=== PATIENT | male | born 1975 | race Caucasian/White ===

== ENCOUNTER 2023-04-25 14:40 | Outpatient (CLI) | payer MEDICARE, SELFPAY | END 2023-04-25 14:41 | disposition home or self-care (01) | DX: L29.0 Pruritus ani (principal) | CPT/HCPCS: 87177; 87209 ==

== ENCOUNTER 2025-01-28 16:56 | Outpatient (CLI) | payer MEDICARE, SELFPAY ==
--- NOTE | ~2025-01-28 | XR_ITS ---
HISTORY: low back pain; no injury COMPARISON: None. TECHNIQUE: 2 view lumbar spine. FINDINGS: Lumbar vertebral bodies are normally aligned. There are 5 non-rib bearing lumbar vertebral bodies. Degenerative disease is noted, with osteophyte formation and disc space narrowing, most prominent at the level of L3/L4 and L5/S1. Remaining disc spaces and vertebral body heights are well maintained. There are no lytic or sclerotic lesions. Paraspinal soft tissues are unremarkable. IMPRESSION: Degenerative disease, without acute fracture. Reviewed, dictated and finalized at location A.
--- OUTSIDE RECORDS SUMMARY | 2025-01-28 17:12 | XMS_ITS | Encounter Summary ---
Author Organization [employer] Address [address] [place] [address] Care Team Providers Care Pilot Plant Operator Name Role Phone Not Found, Stl Primary Care Provider Unavailabl e Encounter Details Date Type Department Care Team (Late st Contact Info) Description 05/08/2006 Outpatient Historical [facility] Larry Victor MD [address] [place] [address] [place] [address] Er, Authorized P NO ADDRESS ON FILE Unspecified Chest Pain (Primary Dx) Social History Tobacco Use Types Packs/Day Years Used Date Smoking Tobacco: Never Assessed Sex and Gender Information Value Date Recorded Sex Assigned at Not on file Legal Sex Male 4:36 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 Gender Identity Not on file Sexual Orientation Not on file documented as of this encounter Plan of Treatment Not on file documented as of this encounter Procedures Procedure Name Priority Date/Time Associated Diagnosis Comments PT AND APTT Routine 05/08/2006 9:10 PM CDT CBC WITH DIFFERENTIAL Routine 05/08/2006 9:10 PM CDT CBC WITH DIFFERENTIAL Routine 05/08/2006 9:10 PM CDT COMPREHENSIVE METABOLIC PANEL Routine 05/08/2006 9:10 PM CDT documented in this encounter Results * CBC WITH DIFFERENTIAL (05/08/2006 9:10 PM CDT) NEUTROPHILS 60 45 - 70 % INTERFAC E SYSTEM LYMPHOCYTES 33 16 - 45 % INTERFAC E SYSTEM MONOCYTES 6 3 - 13 % INTERFACE SYSTEM EOSINOPHILS 2 0 - 7 % INTERFAC E SYSTEM BASOPHILS 0 0 - 2 % INTERFACE SYSTEM NEUTROPHIL ABSOLUTE 5.75 1.90 - 7.00 K/uL INTERFACE SYSTEM LYMPHOCYTE ABSOLUTE 3.13 0.70 - 4.50 K/uL INTERFACE SYSTEM MONOCYTE ABSOLUTE 0.53 0.10 - 1.30 K/uL INTERFACE SYSTEM EOSINOPHIL ABSOLUTE 0.17 0.00 - 0.70 K/uL INTERFACE SYSTEM BASOPHILS ABSOLUTE 0.02 0.00 - 0.20 K/uL INTERFACE SYSTEM 05/08/2006 9:10 PM CDT Larry Victor MD HEMATOLOGY ORDERABLES Final Resu lt Performing Organization Address City/[facility] Co de Phone Number INTERFACE SYSTEM Refer to clinic/hospital department * (ABNORMAL) CBC WITH DIFFERENTIAL (05/08/2006 9:10 PM CDT) WBC 9.6 4.0 - 9.8 K/uL INTERFACE SYSTEM RBC 5.13 4.50 - 5.40 M/uL INTERFACE SYSTEM HEMOGLOBIN 16.1 13.6 - 16.5 g/dL INTERFACE SYSTEM HEMATOCRIT 45.2 40.0 - 48.0 % INTERFACE SYSTEM MCV 88.1 82.0 - 99.0 fL INTERFACE SYSTEM MCH 31.4 27.2 - 32.6 pg INTERFACE SYSTEM MCHC 35.6(H) 31.5 - 35.5 % INTERFACE SYSTEM RDW 12.4 11.5 - 14.5 % INTERFACE SYSTEM RDW-STDEV 39.6 37.1 - 48.7 fL INTERFACE SYSTEM PLATELETS 221 140 - 350 K/uL INTERFACE SYSTEM MPV 9.7 9.3 - 12.4 fL INTERFACE SYSTEM 05/08/2006 9:10 PM CDT Larry Victor MD HEMATOLOGY ORDERABLES Final Resu lt Performing Organization Address City/[facility] Co de Phone Number INTERFACE SYSTEM Refer to clinic/hospital department * PT AND APTT (05/08/2006 9:10 PM CDT) PROTIME 13.4 12.7 - 15.1 Seconds INTERFACE SYSTEM INR 0.9 0.9 - 1.1 INTERFACE SYSTEM Comment: INR Therapeutic Range: Adult: 2.0 - 3.0 for pulmonary embolism or prophylaxis against venous thrombosis or systemic embolization. 2.0 - 3.0 for patients with tissue heart valves. 2.5 - 3.5 for patients with mechanical heart valves or post NV. Pediatric (12 years and under): 1.5 - 3.0 Although the target range in children is not well established , INR values of 1.5 - 3.0 are recommended for most patients. Higher values have been used in children with prosthetic cardiac valves and hereditary clotting disorders. (<3 days) therapeutic ranges have not been established. PTT 27.9 24.4 - 36.4 Seconds INTERFACE SYSTEM Comment: PTT Therapeutic Range: Heparin Level PTT (seconds) <0.10 units/mL <53 0.10 - 0.30 units/mL 53 - 67 0.30 - 0.70 units/mL* 67 - 95* 0.70 - 1.00 units/mL 95 - 116 *corresponds to therapeutic range for unfractionated heparin 05/08/2006 9:10 PM CDT us Larry Victor MD HEMATOLOGY ORDERABLES Final Resu lt INTERFACE SYSTEM Refer to clinic/hospital department * (ABNORMAL) COMPREHENSIVE METABOLIC PANEL (05/08/2006 9:10 PM CDT) GLUCOSE 88 65 - 99 mg/dL INTERFACE SYSTEM CREATININE 1.0 0.5 - 1.3 mg/dL INTERFACE SYSTEM CALCIUM 8.8 8.4 - 10.2 mg/dL INTERFACE SYSTEM ALKALINE PHOSPHATASE 75 40 - 129 U/L INTERFACE SYSTEM AST 34 12 - 38 U/L INTERFACE SYSTEM ALT 57(H) 0 - 41 U/L INTERFACE SYSTEM TOTAL PROTEIN 8.0 6.3 - 8.6 g/dL INTERFACE SYSTEM ALBUMIN 4.9(H) 3.4 - 4.8 g/dL INTERFACE SYSTEM BILIRUBIN TOTAL 0.9 0.2 - 1.0 mg/dL INTERFACE SYSTEM BUN 11 6 - 20 mg/dL INTERFACE SYSTEM SODIUM 143 135 - 145 mmol/L INTERFACE SYSTEM POTASSIUM 3.6 3.5 - 4.9 mmol/L INTERFACE SYSTEM CHLORIDE 104 96 - 108 mmol/L INTERFACE SYSTEM CO2 29 22 - 30 mmol/L INTERFACE SYSTEM 05/08/2006 9:10 PM CDT us Larry Victor MD CHEMISTRY ORDERABLES Final Resul t INTERFACE SYSTEM Refer to clinic/hospital department documented in this encounter Visit Diagnoses Diagnosis Chest pain, unspecified- Primary documented in this encounter Care Teams Pilot Plant Operator Relationship Specialty Start Date End Date Not Found, Stl NO ADDRESS ON FILE PCP - General 09/10/09 documented as of this encounter
--- OUTSIDE RECORDS SUMMARY | 2025-01-28 17:12 | XMS_ITS | Encounter Summary ---
Author Organization [employer] Address 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 Gender Identity Not on file Sexual Orientation Not on file documented as of this encounter Plan of Treatment Not on file documented as of this encounter Procedures Procedure Name Priority Date/Time Associated Diagnosis Comments XR TIBIA AND FIBULA 2 VW LEFT Routine 01/11/2008 11:15 PM CDT XR ELBOW 3+ VW RIGHT Routine 01/11/2008 11:15 PM CDT URINALYSIS W/REFLEX MICROSCOPIC Stat 01/11/2008 11:14 PM CDT documented in this encounter Results * XR ELBOW 3+ VW RIGHT (01/11/2008 11:15 PM CDT) Anatomical Region Laterality Modality Upper Extremity Other 01/11/2008 11:1 5 PM CDT Narrative 01/11/2008 11:36 PM CDT [facility] [address] [place], [place] [address] Admit Date: 01/11/2008 BALTAZAR HINOJOSA Sex: M Admit Prov: ER, AUTHORIZED P Date: 1975 Primary Care Prov: CMRN: [id number] [id number] [facility] Ordering Prov: N/A Accession Number: [id number] Interpretation Right elbow 3 views 01/11/2008. History: Injury. Pain. Findings: No acute fracture, subluxation, lytic or blastic lesion is visualized. The joint spaces are well-maintained. The soft tissues are unremarkable. Impression: No identifiable bone abnormalities. . Dictated by: TAYLOR FOWLER 01/11/2008 23:36 Electronically signed by: TAYLOR FOWLER 01/11/2008 23:36 Procedure Note Taylor Fowler - 01/11/[address] [address] Admit Date: 01/11/2008 BALTAZAR HINOJOSA Sex: M Admit Prov: ER, AUTHORIZED P Date: 1975 Primary Care Prov: CMRN: [id number] [facility] [id number] IM[facility] SERVICES Ordering Prov: N/A Interpretation Right elbow 3 views 01/11/2008. History: Injury. Pain. Findings: No acute fracture, subluxation, lytic or blastic lesionis visualized. The joint spaces are well-maintained. The soft tissuesare unremarkable. Impression: No identifiable bone abnormalities. . Dictated by: TAYLOR FOWLER 01/11/2008 23:36 Electronically signed by: TAYLOR FOWLER 01/11/2008 23:36 us Juan Carlos Reyes DO DIAGNOSTIC IMAGING ORDERABLE S Final Result * XR TIBIA AND FIBULA 2 VW LEFT (01/11/2008 11:15 PM CDT) Anatomical Region Laterality Modality Lower Extremity Other 01/11/2008 11:1 5 PM CDT Narrative 01/11/2008 11:37 PM CDT [address] [address] [place], [place] [address] Admit Date: 01/11/2008 MICAELAJAMILA MORENONON Tony Sex: M Admit Prov: ER, AUTHORIZED P Date: 1975 Primary Care Prov: CMRN: [id number] Room: [facility] SSN: [address] [place] [address] IMAGING SERVICES Ordering Prov: N/A Accession Number: [id number] Interpretation Left tibia and fibula 4 view 01/11/2008 History: Injury. Pain. Findings: No acute fracture, subluxation, lytic or blastic lesion is visualized. The joint spaces are well-maintained. The soft tissues are unremarkable. Impression: No identifiable bone abnormalities. . Dictated by: TAYLOR FOWLER 01/11/2008 23:37 Electronically signed by: TAYLOR FOWLER 01/11/2008 23:37 Procedure Note Taylor Fowler - 01/11/[address] [address] Admit Date: 01/11/2008 MICAELA, BALTAZAR Tony Sex: M Admit Prov: ER, AUTHORIZED P Date: 1975 Primary Care Prov: CMRN: [id number] [facility] [address] [place] [address] IMAGING SERVICES Ordering Prov: N/A Interpretation Left tibia and fibula 4 view 01/11/2008 History: Injury. Pain. Findings: No acute fracture, subluxation, lytic or blastic lesionis visualized. The joint spaces are well-maintained. The soft tissuesare unremarkable. Impression: No identifiable bone abnormalities. . Dictated by: TAYLOR FOWLER 01/11/2008 23:37 Electronically signed by: TAYLOR FOWLER 01/11/2008 23:37 Juan Carlos Reyes DO DIAGNOSTIC IMAGING ORDERABLE S Final Result * (ABNORMAL) URINALYSIS (01/11/2008 11:14 PM CDT) PROTEIN UA Trace(A) Negative [facility] BILIRUBIN UA Negative Negative [facility] LEUKOCYTE ESTERASE UA Negative Negative [facility] RBC UA 1 0 - 3 /HPF [facility] SPECIFIC GRAVITY UA 1.017 1.001 - 1.035 [facility] GLUCOSE UA Negative Negative [facility] BLOOD UA Negative Negative [facility] COLOR UA Yellow [facility] NITRITE UA Negative Negative [facility] UROBILINOGEN UA <1 <=1 mg/dL [facility] EPITHELIAL CELLS, URINE 0-2 /HPF [facility] PH UA 5.0 5.0 - 8.0 [facility] KETONES UA Negative Negative [facility] WBC UA 2 0 - 3 /HPF [facility] CLARITY UA Clear Clear [facility] Urine specimen (specimen) 01/11/2008 11:14 PM CDT 01/11/2008 11:31 PM CDT us Juan Carlos Reyes DO URINE ORDERABLES Final Resul t [facility] CLIA# [id number] [address] [place] [address] documented in this encounter Visit Diagnoses Not on filedocumented in this encounter Care Teams Laboratory Geneticist Relationship Specialty Start Date End Date Not Found, Stl NO ADDRESS ON FILE PCP - General 09/10/09 documented as of this encounter
--- OUTSIDE RECORDS SUMMARY | 2025-01-28 17:12 | XMS_ITS | Encounter Summary ---
Author Organization [employer] Address [address] [place] [address] Care Team Providers Care Vault Teller Name Role Phone Not Found, Stl Primary Care Provider Unavailabl e Encounter Details Date Type Department Care Team (Late st Contact Info) Description 05/08/2006 Outpatient Historical [facility]) [address] 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
--- OUTSIDE RECORDS SUMMARY | 2025-01-28 17:12 | XMS_ITS | Referral Summary ---
Author Organization [facility] Address [address] [place] [address] Care Team Providers Care Bakery Assistant Name Role Phone Marshall Castro NP Primary Care Provider [phone] Encounters Date Type Department Care Team Description 12/24/2024 10:15 AM CDT Office Visit [facility] Endocrinology Metabolism and Lipid [address] [facility] [address] [place] [address] Magalie Ortiz DO Low testosterone (Primary Dx); Fatty liver; Mixed hyperlipidemia; Traumatic brain injury with loss of consciousness, subsequent encounter; Empty sella; Primary hypertension; Class 1 obesity due to excess calories without serious comorbidity with body mass index (BMI) of 34.0 to 34.9 in adult; Other fatigue; Family history of diabetes mellitus; Encounter for long-term (current) use of medications from Last 3 Months Allergies Active Allergy Reactions Criticality Noted Date Comments Clarithromycin Hives High Reaction: Hives, Lorazepam Unknown 03/02/2021 Penicillins Hives High Reaction: Hives, Sulfa (Sulfonamide Antibiotics) Anaphylaxis,Rash,Sw elling High 09/10/2009 Sulfamethoxazole-Trimetho prim Unknown 03/23/2020 Tramadol Shortness of breath High 03/23/2020 Medications oxyCODONE (ROXICODONE) 10 mg tablet Take 1 tablet (10 mg total) by mouth daily 0 Active simvastatin (ZOCOR) 10 mg tablet Take 1 tablet (10 mg total) by mouth daily 0 Active OLANZapine (ZyPREXA) 10 mg tablet Take 1 tablet (10 mg total) by mouth daily 0 Active lisinopriL (PRINIVIL,ZESTR IL) 30 mg tablet daily Active tacrolimus (PROTOPIC) 0.1 % ointment Apply topically 2 (two) times a day Active ALPRAZolam (XANAX) 0.5 mg tablet 4 Active Active Problems Problem Noted Date Diagnosed Date Benign essential hypertension 05/20/2024 Hyperlipidemia 05/20/2024 Impotence 05/20/2024 Trigeminal neuralgia 05/20/2024 Upper respiratory infection 05/20/2024 Verruca vulgaris 05/20/2024 Pain of lumbar spine 04/09/2024 Overview (12/23/2024): Last Assessment & Plan: Continue same tx. Pt is going to contact office for refills on his oxycodone. 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 I have asked that he monitor his vision using an [employer]ler grid return to see us roughly 6 weeks time. Natural history of central serous chorioretinopathy was reviewed with the patient, we are hoping that the fluid will resolve on its own, and no additional intervention will be required. Fortunately I see no evidence for a choroidal alejandro-vascular complex at this time. Social History Tobacco Use Types Packs/Day Years Used Date Smoking Tobacco: Never Smokeless Tobacco: Never AUDIT-C Answer Date Recorded Q1: How often do you have a drink containing alc ohol? 2-4 times a month 01/01/2021 Average Number of Drinks Not on file 021 Frequency of Binge Drinking Not on file 12/13 Sex and Gender Information Value Date Recorded Sex Assigned at Not on file Legal Sex Male 1:31 AM DIRECTOR OF CATERING Gender Identity Male 02/10/2021 9:36 AM CDT Sexual Orientation Straight 11/02/2022 8: 58 PM CDT Last Filed Vital Signs Vital Sign Reading Time Taken Comments Blood Pressure 117/79 12/24/2024 10:13 AM CDT Pulse 83 12/24/2024 10:13 AM CDT Temperature 36.6 C (97.8 F) 05/21/2024 10:33 AM CDT Respiratory Rate - - Oxygen Saturation 96% 12/24/2024 10:13 AM CDT Inhaled Oxygen Concentration - - Weight 97.5 kg (215 lb) 12/24/2024 10:13 AM CDT Height 172.7 cm (5' 8) 12/24/2024 10:13 AM CDT Body Mass Index 32.69 12/24/2024 10:13 AM CDT Plan of Treatment Not on file Procedures Procedure Name Priority Date/Time Associated Diagnosis Comments PSA SCREEN Routine 07/19/2021 7:15 AM DIRECTOR OF CATERING Low testosterone HEPATITIS C ANTIBODY Routine 02/23/2021 7:59 AM CDT Abnormal liver function from Last 3 Months or Most Recently Relevant to Health Maintenance Results * PSA screen (07/19/2021 7:15 AM DIRECTOR OF CATERING) PSA 0.87 < OR = 4.00 ng/mL [facility] Comment: The total PSA value from this assay system is standardized against the WHO standard. The test result will be approximately 20% lower when compared to the equimolar-standardized total PSA (Angela Efren). Comparison of serial PSA results should be interpreted with this fact in mind. This test was performed using the Siemens chemiluminescent method. Values obtained from different assay methods cannot be used interchangeably. PSA levels, regardless of value, should not be interpreted as absolute evidence of the presence or absence of disease. Blood specimen (specimen) 07/19/2021 7:15 AM DIRECTOR OF CATERING 07/19/2021 7:17 AM DIRECTOR OF CATERING us Magalie Ortiz DO LAB BLOOD ORDERABLES Fi nal Result [facility] [address] [id number] * Hepatitis C antibody (02/23/2021 7:59 AM CDT) Hep C Ab NON-REACTI VE NON-REACT SEDA [facility] SIGNAL TO CUT-OFF 0.05 <1.00 [facility] Comment: HCV antibody was non-reactive. There is no laboratory evidence of HCV infection. In most cases, no further action is required. However, if recent HCV exposure is suspected, a test for HCV RNA (test code 22491) is suggested. For additional information please refer to http://education.[employer]/faq/VWU68a2 (This link is being provided for informational/ educational purposes only.) Blood specimen (specimen) 02/23/2021 7:59 AM CDT 02/23/2021 8:01 AM CDT [facility] - 03/01/2021 4:44 PM CDT FASTING:YES FASTING: YES us Magalie Ortiz DO LAB MICROBIOLOGY - GENE RAL ORDERABLES Final Result [facility] [address] [phone] from Last 3 Months or Most Recently Relevant to Health Maintenance Insurance MEDICARE MEDICARE MEDICARE Care Teams Bakery Assistant Relationship Specialty Start Date End Date Marshall Castro NP PCP - General Nurse Practitioner 02/18/19
--- OUTSIDE RECORDS SUMMARY | 2025-01-28 17:12 | XMS_ITS | Encounter Summary ---
Author Organization [facility] Address [address] [place] [address] Phone Care Team Providers Care Military Lawyer Name Role Phone Marshall Castro NP Primary Care Provider [phone] Encounter Details Date Type Department Care Team (Latest Contact Info) Description 09/25/2020 Orders Only [facility] IM EML Scanning, Provider Social History Tobacco Use Types Packs/Day Years Used Date Smoking Tobacco: Never Smokeless Tobacco: Never Sex and Gender Information Value Date Recorded Sex Assigned at Not on file Legal Sex Male 1:31 AM MATERIALS SCIENTIST Gender Identity Male 02/10/2021 9:36 AM CDT Sexual Orientation Straight 11/02/2022 8: 58 PM CDT documented as of this encounter Plan of Treatment Not on file documented as of this encounter Procedures Procedure Name Priority Date/Time Associated Diagnosis Comments SCAN - LABS 09/25/2020 documented in this encounter Results * SCAN - LABS (09/25/2020) us Provider Scanning Final Result documented in this encounter Visit Diagnoses Not on filedocumented in this encounter Care Teams Military Lawyer Relationship Specialty Start Date End Date Marshall Castro NP PCP - General Nurse Practitioner 02/18/19 documented as of this encounter
--- OUTSIDE RECORDS SUMMARY | 2025-01-28 17:12 | XMS_ITS | Clinical Summary ---
Author Organization [facility] Address [address] [place] [address] Phone Care Team Providers Care Union Steward Name Role Phone Not Found, Stl Primary Care Provider Unavailabl e Allergies Active Allergy Reactions Criticality Noted Date Comments Clarithromycin Swelling Low 09/10/2009 Penicillins Swelling Low 09/10/2009 Sulfamethizole Anaphylaxis,Rash,Swelling High 2009 Medications oxycodone-aceta minophen (PERCOCET) 10-325 mg Oral Tab Take 1 Tab by mouth every 4 hours as needed. Active GABAPENTIN PO Take by mouth daily. Active lisinopril (PRINIVIL) 10 mg Oral tabletIndicatio ns:Hyperlipidem ia,Essential hypertension, benign Take 1 Tab by mouth daily. PT IS DUE FOR YEARLY APT. PT MUST MAKE APT IN ORDER TO OBTAIN FURTHER REFILLS. PLEASE RELAY TO PT. 30 Tab 0 08/31/2010 Active Family History Medical History Relation Name Comments Heart Attack Father in his 30's Relation Name Status Comments Father Alive Mother Alive Social History Tobacco Use Types Packs/Day Years Used Date Smoking Tobacco: Never Alcohol Use Standard Drinks/Week Comments Yes 0 (1 standard drink = 0.6 oz pure alcohol) Hasn't drank since having issues Sex and Gender Information Value Date Recorded Sex Assigned at Not on file Legal Sex Male 4:36 AM COMMERCIAL DRIVER Gender Identity Not on file Sexual Orientation Not on file Last Filed Vital Signs Vital Sign Reading Time Taken Comments Blood Pressure 132/80 10/15/2009 11:16 AM COMMERCIAL DRIVER Pulse 94 10/15/2009 11:16 AM COMMERCIAL DRIVER Temperature - - Respiratory Rate - - Oxygen Saturation 96% 10/15/2009 11:16 AM COMMERCIAL DRIVER Inhaled Oxygen Concentration - - Weight 91.6 kg (202 lb) 10/15/2009 11:16 AM COMMERCIAL DRIVER Height 175.3 cm (5' 9) 09/10/2009 11:09 AM COMMERCIAL DRIVER Body Mass Index 29.83 09/10/2009 11:09 AM COMMERCIAL DRIVER Plan of Treatment Health Maintenance Due Date Last Done Comments DTAP/TDAP/TD VACCINES (1 - Tdap) 1993 HEPATITIS B VACCINES (1 of 3 - 19+ 3-dose series) 10/1993 COLORECTAL SCREENING 2019 Colorectal Cancer Screening 2019 FIT-DNA Q 3 years 2019 FIT/FOBT Q 1 year 2019 Flex Sig/CT Colonography Q 5 years 2019 INFLUENZA VACCINE (#1) 2024 ZOSTER VACCINE (1 of 2) 2024 Insurance MEDICARE PART A AND B Care Teams Union Steward Relationship Specialty Start Date End Date Not Found, Stl NO ADDRESS ON FILE PCP - General 09/10/09
--- OUTSIDE RECORDS SUMMARY | 2025-01-28 17:12 | XMS_ITS | Encounter Summary ---
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 Gender Identity Male 02/10/2021 9:36 AM CDT Sexual Orientation Straight 11/02/2022 8: 58 PM CDT documented as of this encounter Plan of Treatment Not on file documented as of this encounter Procedures Procedure Name Priority Date/Time Associated Diagnosis Comments SCAN - LABS 11/02/2023 documented in this encounter Results * SCAN - LABS (11/02/2023) us Provider Scanning Final Result documented in this encounter Visit Diagnoses Not on filedocumented in this encounter Care Teams Branch Library Clerk Relationship Specialty Start Date End Date Marshall Castro NP PCP - General Nurse Practitioner 02/18/19 documented as of this encounter
--- OUTSIDE RECORDS SUMMARY | 2025-01-28 17:12 | XMS_ITS | Encounter Summary ---
Author Organization [employer] Address [address] [place] [address] Care Team Providers Care Goodyear Stitcher Name Role Phone Not Found, Stl Primary Care Provider Unavailabl e Encounter Details Date Type Department Care Team (Late st Contact Info) Description 06/19/2007 Outpatient Historical [facility] Support [facility]. ([facility]) [address] [place] [address] Donnie Menezes MD NO ADDRESS ON FILE Social History Tobacco Use Types Packs/Day Years Used Date Smoking Tobacco: Never Assessed Sex and Gender Information Value Date Recorded Sex Assigned at Not on file Legal Sex Male 4:36 AM DIRECTOR OF ANALYTICAL DEVELOPMENT Gender Identity Not on file Sexual Orientation Not on file documented as of this encounter Plan of Treatment Not on file documented as of this encounter Visit Diagnoses Not on filedocumented in this encounter Care Teams Goodyear Stitcher Relationship Specialty Start Date End Date Not Found, Stl NO ADDRESS ON FILE PCP - General 09/10/09 documented as of this encounter
--- OUTSIDE RECORDS SUMMARY | 2025-01-28 17:12 | XMS_ITS | Encounter Summary ---
Author Organization [facility] Healthcare Address [address] [place] [address] Care Team Providers Care Net Lead Architect Name Role Phone Marshall Castro NP Primary Care Provider Encounter Details Date Type Department Care Team (Late st Contact Info) Description 01/12/2021 Telephone [facility] [place] [address] [place] [address] Elayne Mcginnis, RADHA Social History Tobacco Use Types Packs/Day Years [...] on file Legal Sex Male 1:31 AM DRUG ABUSE COUNSELOR Gender Identity Male 02/10/2021 9:36 AM CDT Sexual Orientation Straight 11/02/2022 8: 58 PM CDT documented as of this encounter Plan of Treatment Not on file documented as of this encounter Visit Diagnoses Not on filedocumented in this encounter Care Teams Net Lead Architect Relationship Specialty Start Date End Date Marshall Castro NP PCP - General Nurse Practitioner 02/18/19 documented as of this encounter
--- OUTSIDE RECORDS SUMMARY | 2025-01-28 17:12 | XMS_ITS | Encounter Summary ---
Author Organization [facility] Address [address] [facility] Attn: Epic Prelude ADT JAM[place] AR[place] [address] Care Team Providers Care Assistant News Director Name Role Phone Not Found, Stl Primary Care Provider Unavailabl e Encounter Details Date Type Department Care Team (Late st Contact Info) Description 06/19/2007 Outpatient Historical Benoit Vasquez MD NO ADDRESS ON FILE Social History Tobacco Use Types Packs/Day Years Used Date Smoking Tobacco: Never Assessed Sex and Gender Information Value Date Recorded Sex Assigned at Not on file Legal Sex Male 4:36 AM PRODUCTION ROUSTABOUT Gender Identity Not on file Sexual Orientation Not on file documented as of this encounter Plan of Treatment Not on file documented as of this encounter Visit Diagnoses Not on filedocumented in this encounter Care Teams Assistant News Director Relationship Specialty Start Date End Date Not Found, Stl NO ADDRESS ON FILE PCP - General 09/10/09 documented as of this encounter
--- OUTSIDE RECORDS SUMMARY | 2025-01-28 17:12 | XMS_ITS | Data Portability ---
Author Organization [facility] AFSHIN P, [address] [place] [address] Neurology ([place]) Address [address] [address] Care Team Providers Care Spoke Maker Name Role Phone SUZANNA BERMEO Primary Care Provider Assessment No assessment recorded. Plan of Treatment Reminders Order Date Submit Date Provider Last Modified By Organization Details Last Modified Time Details Appointments Establish ed Patient 15.EST 2024 10:45A M Dr. Fallon Rudd Not available Not available Not available Lab None recorded. Referral None recorded. Procedures None recorded. Surgeries None recorded. Imaging None recorded. Medication Orders tacrolimu s 0.1 % topical ointment 2023 024 [employer] #[id number], [address], [id number], 06/24/2024 13:45:05 triamcino lone acetonide 0.1 % topical ointment 2023 024 [employer] #[id number], [address], [id number], 06/24/2024 13:45:05 Patient TargetsNo targets recorded. Patient InstructionsNo instructions recorded. Reason for Referral None Reported. Problems Name Problem SNOMED Code Status Onset Date Resolution Date Notes Provider Name and Address Organization Details Recorded Time Seborrheic keratosis 886029255 Active 2023 Izabela moreno [facility] 12:04:35 Lentiginosis 250559217 Active 2023 [facility] 12:04:40 Inflamed seborrheic keratosis 574282866 Active 2023 [facility] 12:08:27 Eczema 07343769 Active 2023 [facility] 12:09:11 Irritant contact dermatitis 701201729 Active 2023 [facility] 12:15:00 Problem Notes None recorded. Medical Equipment None Reported. Allergies Allergen ID Allergen Name Allergen Category Reaction Reaction Severity Criticality Documentation Date Start Date Code Code System Note Provider Name and Address Organization Details Recorded Time 218760 Bactrim medicatio n Not available Not available Not available 09/11/20232020 97039 9 RxNorm Not Available [facility] 4 22:32:32 125542 Biaxin medicatio n Not available Not available Not available 09/11/20232020 29829 9 RxNorm Not Available [facility] 4 22:32:32 315366 Product containin g penicilli n (product) medicatio n Not available Not available Not available 09/11/20232020 03140 8001 SNOMED Not Available [facility] 4 22:32:32 780448 Substance with sulfonami de structure and antibacte rial mechanism of action (substanc e) medicatio n Not available Not available Not available 09/11/20232020 41925 8003 SNOMED Not Available [facility] 4 22:32:32 448287 tramadol Not available Not available Not available Not available 09/11/20232020 85269 RxNorm Not Available [facility] 4 22:32:32 Medications Name Sig Start Date Stop Date Status Note LastModified by Organization Details LastModified Time trazodone 50 mg tablet TAKE 1 TABLET BY MOUTH NIGHTLY AT BEDTIME active Not Available Not Available No t Available azithromycin 250 mg tablet active Not Available Not Available Not Available prednisone 20 mg tablet TAKE 2 TABLETS BY MOUTH EVERY DAY FOR 5 DAYS active Not Available Not Available No t Available simvastatin 10 mg tablet TAKE 1 TABLET BY MOUTH DAILY active Not Available Not Available Not Available olanzapine 5 mg tablet active Not Available Not Available No t Available olanzapine 10 mg tablet TAKE 1 TABLET BY MOUTH TWICE DAILY active Not Available Not Available No t Available alprazolam 0.5 mg tablet TAKE 1 TABLET BY MOUTH DAILY NEEDED FOR ANXIETY active Not Available Not Available Not Available tacrolimus 0.1 % topical ointment apply sparingly to the aa qd for maintenance 2023 active Not Available Not Available Not Avai lable triamcinolon e acetonide 0.1 % topical ointment apply sparingly to the aa id x 2 weeks prn flares active Not Available Not Available No t Available lisinopril 30 mg tablet TAKE 1 TABLET BY MOUTH ONCE DAILY active Not Available Not Available No t Available chlorhexidin e gluconate 0.12 % mouthwash active Not Available Not Available No t Available oxycodone 10 mg tablet TAKE 1 TABLET BY MOUTH EVERY 6 HOURS active Not Available Not Available No t Available Vitals None Recorded Social History None recorded. Functional Status None recorded. Mental Status None recorded. Family History Nothing Reported. Medical History No medical history recorded. Past Encounters Encounter ID Performer Location Encounter Start Date Encounter Closed Date Diagnosis/Indication Diagnosis SNOMED-CT Code Diagnosis ICD10 Code Diagnosis Note [id number] Fallon Rudd MD [facility] [address] [facility] [place] [address] 06/24/2024 11:21:05 06/24/2024 12:18:14 Seborrheic keratosis 330357998 L82.1 Seborrheic keratosesW e discussed the fact that these are benign lesions requiring no treatment. We discussed the fact that removal would be considered a cosmetic procedure and would not be covered by insurance. The patient was advised that more such lesions may develop. The patient is not bothered by the lesions and does not wish to have them treated. We will observe. Lentiginosis 214766469 L 81.4 Lentigines . We discussed the fact that lentigines are actinicall y induced and that they are benign. We discussed the fact that they should be watched carefully for change. We discussed the importance of photoprote ction using protective clothing and sunscreen with SPF 30 or higher on a regular basis. We will observe. Inflamed s eborrheic keratosis 625803617 L82.0 Irritated seborrheic keratosis : We discussed the benign nature of the lesion and that it is legitimate ly irritated. The risks and benefits of the procedure, the risks and benefits of alternativ e procedures , as well as the possible consequenc es of not undergoing the procedure were discussed. The potential for recurrence and developmen t of further lesions was discussed. The patient verbalizes understand ing and gives consent to proceed.Th e lesion was treated with liquid nitrogenLo cation: left medial canthusPos t-treatmen t instructio ns were discussed. Patient was asked to call the office if the lesions are not healed/res olved as expected. Eczema 83859176 L30.9 Eczema. Stable on current treatment regimen. I suggested that patient continue with the current treatment regimen of: triamcinol one when flared and tacrolimus ointment for maintenanc e.. If the condition progresses , flares, or changes, or if patient encounters problems with medication s, patient was asked to call the office. Irritant c ontact dermatitis 589209240 L24.9 irritant contact dermatitis . Stable on current treatment regimen. I suggested that patient continue with the current treatment regimen of: Triamcinol one ointment and Tacrolimus ointment. If the condition progresses , flares, or changes, or if patient encounters problems with medication s, patient was asked to call the office. I advised patient to return in 1 year. Health Concerns Section Related Observation LastModified by Organization Detai ls LastModified Time None Recorded Concern Status LastModified by Organization Details LastModified Time None Recorded Advance Directives Directive None Recorded Payers Insurance Date Sequence Insurance Name Policy Number Policy Alaniz Covered Member ID Alaniz Member ID Guarantor Name 06/28/2024 1 [place] Devon Vo [id number] Devon Vo Notes Date Note Type Note Provider Name and Address Organization Details Recorded Time 06/24/2024 text/html EPV -Refer to Dermatology Patient History form in the EHR that has been reviewed and signed. Please refer to this form for Past Medical History, Family History, and additional Social History Gown: Yes Date last seen: 06/20/23 Smoker: No Patient presents today for recheck of skin. No history of skin cancer. Previously treated skin conditions: none New/changing moles or lesions: Yes- right chin Duration: 1-2 years Associated symptoms: itching: No pain: No tenderness: No growth: No bleeding: No drainage: No color change: No scaling: Yes topical treatments applied: No Other concerning lesions or skin concerns: No Regular use of sunscreen with SPF of 30 or greater: No Regular use of protective clothing: no Regular performance of self skin examinations: Yes Major change in health status since last visit: No Fallon Rudd MD [address] [place] [address], [phone], [facility] 06/27/2024 13:55:57
--- OUTSIDE RECORDS SUMMARY | 2025-01-28 17:12 | XMS_ITS | Encounter Summary ---
Author Organization [employer] Address [address] [place] [address] Care Team Providers Care Brewery Technician Name Role Phone Not Found, Stl Primary Care Provider Unavailabl e Encounter Details Date Type Department Care Team (Late st Contact Info) Description 06/19/2007 Outpatient Historical [place] [address] [facility] [address] [place] [address] [place] [address] [facility] [address] [place] [address] Other Chest Pain (Primary Dx) Social History Tobacco Use Types Packs/Day Years Used Date Smoking Tobacco: Never Assessed Sex and Gender Information Value Date Recorded Sex Assigned at Not on file Legal Sex Male 4:36 AM DELIVERY MAN Gender Identity Not on file Sexual Orientation Not on file documented as of this encounter Plan of Treatment Not on file documented as of this encounter Procedures Procedure Name Priority Date/Time Associated Diagnosis Comments TROPONIN (W/REFLEX CKMB/CK) Routine 06/19/2007 11:12 AM DELIVERY MAN TROPONIN (W/REFLEX CKMB/CK) Routine 06/19/2007 5:18 AM DELIVERY MAN CBC WITH DIFFERENTIAL Routine 06/19/2007 5:18 AM DELIVERY MAN CBC WITH DIFFERENTIAL Routine 06/19/2007 5:18 AM DELIVERY MAN COMPREHENSIVE METABOLIC PANEL Routine 06/19/2007 5:18 AM DELIVERY MAN documented in this encounter Results * TROPONIN (W/REFLEX CKMB/CK) (06/19/2007 11:12 AM DELIVERY MAN) TROPONIN T <0.01 <=0.03 ng/mL INTERFACE SYSTEM TROPONIN T INTERP Negative INTERFACE SYSTEM 06/19/2007 11:1 2 AM DELIVERY MAN Kaylyn Hilton MD CHEMISTRY ORDERABLES Edite d Performing Organization Address [facility] de Phone Number INTERFACE SYSTEM Refer to clinic/hospital department * TROPONIN (W/REFLEX CKMB/CK) (06/19/2007 5:18 AM DELIVERY MAN) TROPONIN T <0.01 <=0.03 ng/mL INTERFACE SYSTEM TROPONIN T INTERP Negative INTERFACE SYSTEM 06/19/2007 5:18 AM DELIVERY MAN Result [facility] Rubi Whittington MD CHEMISTRY ORDERABLES Edited Performing Organization Address [facility] Phone Number INTERFACE SYSTEM Refer to clinic/hospital department * CBC WITH DIFFERENTIAL (06/19/2007 5:18 AM DELIVERY MAN) NEUTROPHILS 61 45 - 70 % INTERFAC E SYSTEM LYMPHOCYTES 32 16 - 45 % INTERFAC E SYSTEM MONOCYTES 7 3 - 13 % INTERFACE SYSTEM EOSINOPHILS 1 0 - 7 % INTERFAC E SYSTEM BASOPHILS 0 0 - 2 % INTERFACE SYSTEM NEUTROPHIL ABSOLUTE 5.56 1.90 - 7.00 K/uL INTERFACE SYSTEM LYMPHOCYTE ABSOLUTE 2.90 0.70 - 4.50 K/uL INTERFACE SYSTEM MONOCYTE ABSOLUTE 0.61 0.10 - 1.30 K/uL INTERFACE SYSTEM EOSINOPHIL ABSOLUTE 0.07 0.00 - 0.70 K/uL INTERFACE SYSTEM BASOPHILS ABSOLUTE 0.02 0.00 - 0.20 K/uL INTERFACE SYSTEM 06/19/2007 5:18 AM DELIVERY MAN Rubi Whittington MD HEMATOLOGY ORDERABLES Edited Performing Organization Address City/[facility] Co de Phone Number INTERFACE SYSTEM Refer to clinic/hospital department * CBC WITH DIFFERENTIAL (06/19/2007 5:18 AM DELIVERY MAN) WBC 9.2 4.0 - 9.8 K/uL INTERFACE SYSTEM RBC 4.99 4.50 - 5.40 M/uL INTERFACE SYSTEM HEMOGLOBIN 15.5 13.6 - 16.5 g/dL INTERFACE SYSTEM HEMATOCRIT 43.8 40.0 - 48.0 % INTERFACE SYSTEM MCV 87.8 82.0 - 99.0 fL INTERFACE SYSTEM MCH 31.1 27.2 - 32.6 pg INTERFACE SYSTEM MCHC 35.4 31.5 - 35.5 % INTERFACE SYSTEM RDW 12.6 11.5 - 14.5 % INTERFACE SYSTEM RDW-STDEV 40.4 37.1 - 48.7 fL INTERFACE SYSTEM PLATELETS 250 140 - 350 K/uL INTERFACE SYSTEM MPV 9.6 9.3 - 12.4 fL INTERFACE SYSTEM 06/19/2007 5:18 AM DELIVERY MAN us Rubi Whittington MD HEMATOLOGY ORDERABLES Edited INTERFACE SYSTEM Refer to clinic/hospital department * (ABNORMAL) COMPREHENSIVE METABOLIC PANEL (06/19/2007 5:18 AM DELIVERY MAN) GLUCOSE 105(H) 65 - 99 mg/dL INTERFACE SYSTEM CREATININE 0.89 0.67 - 1.17 mg/dL INTERFACE SYSTEM CALCIUM 8.3(L) 8.4 - 10.2 mg/dL INTERFACE SYSTEM ALKALINE PHOSPHATASE 73 40 - 129 U/L INTERFACE SYSTEM AST 24 12 - 38 U/L INTERFACE SYSTEM ALT 40 0 - 41 U/L INTERFACE SYSTEM TOTAL PROTEIN 7.6 6.3 - 8.6 g/dL INTERFACE SYSTEM ALBUMIN 4.4 3.4 - 4.8 g/dL INTERFACE SYSTEM BILIRUBIN TOTAL 0.5 0.2 - 1.0 mg/dL INTERFACE SYSTEM BUN 16 6 - 20 mg/dL INTERFACE SYSTEM SODIUM 140 135 - 145 mmol/L INTERFACE SYSTEM POTASSIUM 3.1(L) 3.5 - 4.9 mmol/L INTERFACE SYSTEM CHLORIDE 103 96 - 108 mmol/L INTERFACE SYSTEM CO2 29 22 - 30 mmol/L INTERFACE SYSTEM GFR, >60 >=60 mL/min/1. 7 sq meter INTERFACE SYSTEM GFR >60 >=60 mL/min/1. 7 sq meter INTERFACE SYSTEM Comment: Estimated GFR rate interpretative information for both Americans and non- Americans is available on the [facility] Intranet at: [email or web address] childrenOne to the World/unity/sjmmclab.nsf Select: Lab Policies and Procedures Select: Reference Ranges - GFR 06/19/2007 5:18 AM DELIVERY MAN us Rubi Whittington MD CHEMISTRY ORDERABLES Edited INTERFACE SYSTEM Refer to clinic/hospital department documented in this encounter Visit Diagnoses Diagnosis Other chest pain- Primary documented in this encounter Care Teams Brewery Technician Relationship Specialty Start Date End Date Not Found, Stl NO ADDRESS ON FILE PCP - General 09/10/09 documented as of this encounter
--- OUTSIDE RECORDS SUMMARY | 2025-01-28 17:12 | XMS_ITS | Clinical Summary ---
Author Organization [facility] Address [address] [place] [address] Care Team Providers Care Health Insurance Specialist Name Role Phone Marshall Castro NP Primary Care Provider [phone] Allergies Active Allergy Reactions Criticality Noted Date [...] a choroidal alejandro-vascular complex at this time. Encounters Date Type Department Care Team Description 12/24/2024 10:15 AM CDT Office Visit [facility] Endocrinology Metabolism and Lipid [address] [facility] [address] [place] [address] Magalie Ortiz DO Low testosterone (Primary Dx); Fatty liver; Mixed hyperlipidemia; Traumatic brain injury with loss of consciousness, subsequent encounter; Empty sella; Primary hypertension; Class 1 obesity due to excess calories without serious comorbidity with body mass index (BMI) of 34.0 to 34.9 in adult; Other fatigue; Family history of diabetes mellitus; Encounter for long-term (current) use of medications from Last 3 Months Surgical History Surgery Date Site/Laterality Comments APPENDECTOMY KNEE ARTHROSCOPY Bilateral Medical History Medical History Date Comments TBI (traumatic brain injury) ([facility]) 2005, 2012 Hypertension Erectile dysfunction Hypogonadism in male Hypertriglyceridemia Herniated disc, cervical and lum bar Family History Medical History Relation Name Comments No Known Problems Daughter Diabetes Father Hyperlipidemia Father Hypertension Father Depression Maternal Grandfather Parkinson's Maternal Grandfather Diabetes type II Maternal Grandmother No Known Problems Mother No Known Problems Sister Glaucoma Neg Hx Macular degeneration Neg Hx Relation Name Status Comments Daughter Alive Father Alive Maternal Grandfather Alive Maternal Grandmother Alive Mother Alive Sister Alive Social History Tobacco Use Types Packs/Day [...] on file Legal Sex Male 1:31 AM MILL SUPERVISOR Gender Identity Male 02/10/2021 9:36 AM CDT Sexual Orientation Straight 11/02/2022 8: 58 PM CDT Obstetrics History Last Filed Vital Signs Vital Sign Reading [...] 12/24/2024 10:13 AM CDT Plan of Treatment Health Maintenance Due Date Last Done Comments Colon Cancer Screening-Colonoscopy 1974 Depression Screening 1974 DTaP/Tdap/Td Vaccine (1 - Tdap) 1985 Hepatitis B Screening 1992 Regular Well Visit/Exam 18-64 1992 Pneumococcal vaccine <65 (1 of 2 - PCV) 1993 Prostate Cancer Screening-PSA 07/19/2023 07/19/2021, 02/23/2021 Zoster Vaccine (1 of 2) 2024 Hepatitis C Screening Completed 02/23/2021 Influenza Vaccine Completed 05/17/2024, , 06/28/2022, Additional history exists Procedures Procedure Name Priority Date/Time Associated Diagnosis Comments PSA SCREEN Routine 07/19/2021 7:15 AM MILL SUPERVISOR Low testosterone HEPATITIS C ANTIBODY Routine 02/23/2021 7:59 AM CDT Abnormal liver function from Last 3 Months or Most Recently Relevant to Health Maintenance Results * PSA screen (07/19/2021 7:15 AM MILL SUPERVISOR) PSA 0.87 < OR = 4.00 ng/mL [facility] Comment: The total PSA value from [...] disease. Blood specimen (specimen) 07/19/2021 7:15 AM MILL SUPERVISOR 07/19/2021 7:17 AM MILL SUPERVISOR Magalie Ortiz DO LAB BLOOD ORDERABLES Fi nal Result [facility] [address] [place] [address] * Hepatitis C antibody (02/23/2021 7:59 AM CDT) Hep C Ab NON-REACTI VE NON-REACT SEDA [facility] SIGNAL TO CUT-OFF 0.05 <1.00 [facility] Comment: HCV antibody was non-reactive. There is no laboratory evidence of HCV infection. In most cases, no further action is required. However, if recent HCV exposure is suspected, a test for HCV RNA (test code 25834) is suggested. For additional information please refer to http://education.De Correspondent/faq/KSJ38o3 (This link is being provided for informational/ educational purposes only.) Blood specimen (specimen) 02/23/2021 7:59 AM CDT 02/23/2021 8:01 AM CDT Narrative [facility] - 03/01/2021 4:44 PM CDT FASTING:YES FASTING: YES us Magalie Ortiz DO LAB MICROBIOLOGY - GENE RAL ORDERABLES Final Result [facility] [address] [phone] from Last 3 Months or Most Recently Relevant to Health Maintenance Insurance MEDICARE MEDICARE MEDICARE Care Teams Health Insurance Specialist Relationship Specialty Start Date End Date Marshall Castro NP PCP - General Nurse Practitioner 02/18/19
== END 2025-01-28 16:57 | disposition home or self-care (01) ==
DX: M54.50 Low back pain, unspecified (principal); M51.369 Other intervertebral disc degeneration, lumbar region without mention of lumbar back pain or lower extremity pain
CPT/HCPCS: 72100